=== PATIENT | female | born 1970 | race Caucasian/White ===

== ENCOUNTER 2020-11-16 13:16 | Emergency (ER) | payer OTHER, BC ==
[2020-11-16 13:27] VITALS: BP 151/86; PULSE 87; TEMP 99.3; BMI 42.5
== END 2020-11-16 15:23 | disposition home or self-care (01) ==
LOC: FER 13:16
DX: S80.12XA Contusion of left lower leg, initial encounter (principal)
CPT/HCPCS: 73590-TC-LT-FY; 73610-TC-LT-FY; 93971-TC; 99284-25

== ENCOUNTER 2021-09-07 08:19 | Emergency (ER) | payer BC, OTHER ==
[2021-09-07 08:39] VITALS: BP 121/83; PULSE 76; TEMP 98.8; BMI 40.3
== END 2021-09-07 09:09 | disposition home or self-care (01) ==
LOC: FER 08:19
DX: M25.512 Pain in left shoulder (principal)
CPT/HCPCS: 73030-TC-LT-FY; 99283-25

== ENCOUNTER 2022-07-31 10:04 | Emergency (ER) | payer BC ==
[2022-07-31 10:14] VITALS: BP 149/84; PULSE 61; RESP 20; TEMP 98.6; BMI 41.8
[2022-07-31] MEDS ORDERED: ALBUTEROL SO4 2.5/IPRATROPIUM 0.5 INH SOL 3 ML VIAL.NEB. NEB ONE ×2 (10:21→10:37)
[2022-07-31 11:15] LABS: HEMATOCRIT 43.1 % (32.4-45.2); HEMOGLOBIN 14.6 G/dL (10.7-15.3); MCH 31.6 pg (25.7-33.7); MEAN PLT VOLUME 8.6 fl (7.5-11.1); PLATELET COUNT 265.7 10^3/uL (134-434); RBC 4.63 10^6/uL (3.60-5.2); RDW 13.3 % (11.6-15.6); WHITE BLOOD COUNT 8.1 10^3/uL (4.0-10.8)
[2022-07-31 11:22] LABS: ALBUMIN 3.9 g/dl (3.4-5.0); BILIRUBIN,TOTAL 0.7 mg/dl (0.2-1); CALCIUM 8.8 mg/dl (8.5-10); CREATININE 0.9 mg/dl (0.55-1.3); TOT PROT 7.3 g/dl (6.4-8.2)
[2022-07-31 11:24] LABS: PLATELET ESTIMATE ADEQUATE
== END 2022-07-31 12:03 | disposition home or self-care (01) ==
LOC: FER 10:04
PROC: 3E0F7GC Introduction of Other Therapeutic Substance into Respiratory Tract, Via Natural or Artificial Opening (ICD-10-PCS; principal; 2022-07-31)
DX: R05.1 Acute cough (principal); R06.02 Shortness of breath
CPT/HCPCS: 0241U-QW; 36415; 71046-TC-FY; 80053; 84443; 84484; 85027; 93005; 99285-25

== ENCOUNTER 2024-08-13 15:18 | Observation (INO) | payer BC ==
[2024-08-13] MEDS: SODIUM CHLORIDE 0.9% 1000 ML INFUS.BAG IV ONE (16:00)
[2024-08-13] MEDS ORDERED: ACETAMINOPHEN INJECTION 100 ML ONE (16:08)
[2024-08-13] MEDS ORDERED: METOCLOPRAMIDE HCL INJECTION 10 MG/2 ML VIAL ONE (16:08)
[2024-08-13] MEDS: METOCLOPRAMIDE HCL INJECTION 10 MG/2 ML VIAL IVPB ONE (16:10)
[2024-08-13] MEDS: ACETAMINOPHEN 1000 MG/100 ML BAG IVPB ONE (16:18)
[2024-08-13 16:29] LABS: HEMATOCRIT 44.9 % (32.4-45.2); HEMOGLOBIN 15.2 G/dL (10.7-15.3); MCH 31.8 pg (25.7-33.7); MCHC 33.9 g/dl (32.0-36.0); MEAN CELL VOLUME 93.8 fl (80-96); MEAN PLT VOLUME 9.6 fl (7.5-11.1); PLATELET COUNT 276.4 10^3/uL (134-434); RBC 4.79 10^6/uL (3.60-5.2); RDW 12.7 % (11.6-15.6); WHITE BLOOD COUNT 9.1 10^3/uL (4.0-10.8)
[2024-08-13] MEDS ORDERED: MECLIZINE HCL 25 MG TABLET (FP) ONE (16:34)
[2024-08-13] MEDS: MECLIZINE HCL 25 MG TABLET (FP) PO ONE (16:35)
[2024-08-13 16:37] LABS: ALBUMIN 4.7 g/dl (3.4-5.0); BILIRUBIN,TOTAL 0.5 mg/dl (0.2-1); CALCIUM 9.7 mg/dl (8.5-10.1); CREATININE 1.1 mg/dl (0.6-1.3); POTASSIUM 4.1 mmol/L (3.5-5.1); TOT PROT 8.1 g/dl (6.4-8.2)
[2024-08-13 17:21] LABS: PLATELET ESTIMATE ADEQUATE
[2024-08-13] MEDS ORDERED: DOCUSATE SODIUM 100 MG CAPSULE (FP) PO PRN (19:58)
[2024-08-13] MEDS ORDERED: ACETAMINOPHEN 500 MG TABLET (FP) PO PRN (19:58)
[2024-08-13 22:39] VITALS: RESP 18
[2024-08-13] MEDS: METHYL SALICYLATE/MENTHOL 30 GM TUBE TP PRN (23:43)
[2024-08-13] MEDS: APIXABAN 5 MG TABLET PO SCH (23:49)
[2024-08-14 06:04] VITALS: BMI 41.2
[2024-08-14] MEDS ORDERED: ACETAMINOPHEN 500 MG TABLET (FP) PO PRN (07:51)
[2024-08-14 08:12] LABS: CALCIUM 9.1 mg/dl (8.5-10.1); MAGNESIUM 2.2 mg/dL (1.8-2.4); PHOSPHOROUS 3.8 (2.5-4.9); POTASSIUM 4.3 mmol/L (3.5-5.1)
[2024-08-14 09:38] LABS: BASO % 0.4 % (0-2.0); EOS % 5.1 % (0-4.5); HEMATOCRIT 41.3 % (32.4-45.2); HEMOGLOBIN 13.9 GM/dL (10.7-15.3); LYMPH % 24.3 % (8-40); MCH 31.3 pg (25.7-33.7); MCHC 33.6 g/dl (32.0-36.0); MEAN CELL VOLUME 93.1 fl (80-96); MEAN PLT VOLUME 9.5 fl (7.5-11.1); MONO % 10.3 % (3.8-10.2); NEUT % 59.9 % (42.8-82.8); PLATELET COUNT 256 10^3/uL (134-434); RBC 4.44 M/mm3 (3.60-5.2); RDW 12.7 % (11.6-15.6); WHITE BLOOD COUNT 6.3 K/mm3 (4.0-10.0)
[2024-08-14] MEDS ORDERED: DULoxetine HCL 30 MG CAPSULE.DR PO SCH (10:00)
[2024-08-14] MEDS: amLODIPine BESYLATE 2.5 MG TABLET (FP) PO SCH (10:37)
[2024-08-14] MEDS: MECLIZINE HCL 25 MG TABLET (FP) PO PRN (12:27)
[2024-08-14 12:53] VITALS: BP 120/73
[2024-08-14 14:40] VITALS: PULSE 61; TEMP 98.1
[2024-08-14] MEDS: LORazepam 2 MG/ML SDV VIAL IVPUSH PRN (14:52)
== END 2024-08-14 18:59 | disposition home or self-care (01) ==
LOC: FER 15:18 → FM/S 17:11
PROVIDERS: ADMIT Internal Medicine; ATTEND Internal Medicine
PROC: 3E033NZ Introduction of Analgesics, Hypnotics, Sedatives into Peripheral Vein, Percutaneous Approach (ICD-10-PCS; principal; 2024-08-13)
PROC: 3E033GC Introduction of Other Therapeutic Substance into Peripheral Vein, Percutaneous Approach (ICD-10-PCS; 2024-08-13)
PROC: 3E0337Z Introduction of Electrolytic and Water Balance Substance into Peripheral Vein, Percutaneous Approach (ICD-10-PCS; 2024-08-13)
DX: R42 Dizziness and giddiness (principal); I48.91 Unspecified atrial fibrillation; I47.20 Ventricular tachycardia, unspecified; Q21.12 Patent foramen ovale; F41.8 Other specified anxiety disorders; M79.7 Fibromyalgia; Z79.01 Long term (current) use of anticoagulants
CPT/HCPCS: 0241U-QW; 36415; 70450-TC; 70551-TC; 80048; 80053; 82607; 82746; 83735; 84100; 84443; 84484; 85025; 85027; 93005; 97116-GP; 97161-GP; 99285-25; G0378; J0131